=== PATIENT | female | born 1965 | race African-American/Black ===

== ENCOUNTER 2019-11-09 11:07 | Emergency (ER) | payer SELFPAY ==
[~2019-11-09] VITALS: Ht 165.1 cm; Wt 90.0 kg
[2019-11-09 13:38] LABS: BASOPHILS % 0.4 % (0.0-2.0); EOSINOPHILS % 0.5 % (0.0-5.0); HEMATOCRIT. 37.5 % (36.0-48.0); LYMPHOCYTES % 11.6 % (20.0-50.0); MEAN CORPUSCULAR HEMOGLOBIN 27.2 pg (28.0-32.0); MEAN CORPUSCULAR VOLUME 78.7 fL (81.0-99.0); MEAN PLATELET VOLUME 7.9 fl (7.4-10.4); MONOCYTES % 5.5 % (2.0-8.0); PLATELET 221 x1000/uL (130-400); RED BLOOD CELL COUNT 4.77 mill/uL (4.2-5.4); RED CELL DISTRIBUTION WIDTH 17.2 % (11.6-14.6)
[2019-11-09 13:44] LABS: CHLORIDE 103 mEq/L (98-107)
[2019-11-09 13:48] LABS: ETHANOL BLOOD < 10 mg/dL
[2019-11-09 13:52] LABS: CLARITY URINE CLEAR (CLEAR); COLOR URINE YELLOW (YELLOW); KETONES URINE NEGATIVE (NEGATIVE); LEUKOCYTE ESTERASE URINE NEGATIVE (NEGATIVE); NITRITE URINE NEGATIVE (NEGATIVE); OCCULT BLOOD URINE 2+ (NEGATIVE); PH URINE 7.5 (4.5-8.0); PROTEIN URINE 1+ (NEGATIVE); UROBILINOGEN URINE 0.2 E.U./dL (0.2-1.0)
[2019-11-09 13:57] LABS: PARTIAL THROMBOPLASTIN TIME 26.6 sec (23.4-31.0); PROTHROMBIN TIME 10.5 sec (9.6-11.0)
[2019-11-09 14:03] LABS: *AMPHETAMINES SCREEN URINE NEGATIVE (NEGATIVE); *BARBITURATES SCREEN URINE NEGATIVE (NEGATIVE); CANNABINOID URINE SCREEN PRESUMTIVE POSITIVE (NEGATIVE); METHADONE URINE SCREEN NEGATIVE (NEGATIVE); OPIATES URINE SCREEN NEGATIVE (NEGATIVE); PHENCYCLIDINE URINE SCREEN NEGATIVE (NEGATIVE)
[2019-11-09 14:04] LABS: *BENZODIAZEPINES SCREEN URINE NEGATIVE (NEGATIVE); *COCAINE SCREEN URINE PRESUMTIVE POSITIVE (NEGATIVE)
[2019-11-09 15:30] VITALS: BP 227/109
== END 2019-11-09 20:50 | disposition left against medical advice (07) ==
LOC: ER 11:07
DX: R07.9 Chest pain, unspecified (principal); R10.9 Unspecified abdominal pain
CPT/HCPCS: 36415; 71045; 80053; 80305; 80320; 81003; 83880; 84484; 85025; 93005; 99285; G0480

== ENCOUNTER 2021-05-29 21:02 | Emergency (ER) | payer MEDICAID ==
[~2021-05-29] VITALS: Ht 162.6 cm; Wt 82.0 kg
[2021-05-30] MEDS ORDERED: ASPIRIN 325MG EC TABLET PO ONE (01:00)
[2021-05-30] MEDS ORDERED: ONDANSETRON HCL 4MG/2ML INJ IV STA (01:37)
[2021-05-30] MEDS ORDERED: MORPHINE SULFATE 4 MG/ML CPJ (NOT FOR IM USE) IV STA ×2 (01:37→04:58)
[2021-05-30 01:53] LABS: HEMOGLOBIN. 8.8 g/dL (12.0-16.0); MEAN CORPUSCULAR VOLUME 69.6 fL (81.0-99.0); MEAN PLATELET VOLUME 9.1 fl (7.4-10.4); PLATELET 178 x1000/uL (130-400); RED BLOOD CELL COUNT 4.02 mill/uL (4.2-5.4); RED CELL DISTRIBUTION WIDTH 22.1 % (11.6-14.6)
[2021-05-30 03:45] LABS: CHLORIDE 111 mEq/L (98-107)
[2021-05-30] MEDS ORDERED: LABETALOL HCL 100 MG in DEXT 5% WATER 80 ML IV PRN (04:30)
[2021-05-30] MEDS ORDERED: ESMOLOL HCL 10MG/ML 10ML VIAL IV SCH (05:00)
[2021-05-30] MEDS: ESMOLOL 2500MG PREMIX 250 ML IV PRN ×3 (05:15→11:45)
[2021-05-30] MEDS ORDERED: IOHEXOL-350 100 ML BOTTLE ONE (06:14)
[2021-05-30] MEDS ORDERED: MORPHINE SULFATE 4 MG/ML CPJ (NOT FOR IM USE) IV ONE ×2 (07:15→12:15)
[2021-05-30 08:18] LABS: *AMPHETAMINES SCREEN URINE NEGATIVE (NEGATIVE)
[2021-05-30 08:19] LABS: *BARBITURATES SCREEN URINE NEGATIVE (NEGATIVE); *BENZODIAZEPINES SCREEN URINE NEGATIVE (NEGATIVE); *COCAINE SCREEN URINE PRESUMTIVE POSITIVE (NEGATIVE); METHADONE URINE SCREEN NEGATIVE (NEGATIVE); OPIATES URINE SCREEN NEGATIVE (NEGATIVE); PHENCYCLIDINE URINE SCREEN NEGATIVE (NEGATIVE)
[2021-05-30 08:20] LABS: CANNABINOID URINE SCREEN PRESUMTIVE POSITIVE (NEGATIVE)
[2021-05-30 09:14] LABS: PLATELET ESTIMATE NORMAL
[2021-05-30 12:40] VITALS: BP 115/70
== END 2021-05-30 12:43 | disposition short-term general hospital (02) ==
LOC: ER 21:02 → CANBEDREQ 05-30 12:48
DX: I71.8 Aortic aneurysm of unspecified site, ruptured (principal); I71.00 Dissection of unspecified site of aorta; I11.9 Hypertensive heart disease without heart failure
CPT/HCPCS: 36415; 71045; 71275; 80053; 80305; 83880; 84484; 85025; 85379; 87426; 93005; 96374; 96375; 96376; 99291; J2270; J2405; J3490; Q9967